=== PATIENT | female | born 1940 | race Caucasian/White ===

== ENCOUNTER → 2018-12-09 09:54 | Outpatient (CLI) | payer MEDICARE, SELFPAY ==
[2018-12-09 11:22] LABS: Estimated Glomerular Filt Rate > 60.0 mL/min (>60)
== END ==
PROVIDERS: PCP Specialist; Visit Provider Dentist Oral and Maxillofacial Surgery
DX: C06.0 Malignant neoplasm of cheek mucosa (principal)
CPT/HCPCS: 36415; 82565

== ENCOUNTER → 2018-12-11 09:36 | Outpatient (CLI) | payer MEDICARE, SELFPAY ==
--- NOTE | 2018-12-11 | DI.CT.S_ITS ---
PROCEDURE: CT FACIAL BONES WO/W CON INDICATIONS: Malignant neoplasm of cheek mucosa TECHNIQUE: After the administration of intravenous contrast, 2.5 mm axial sections acquired from the mid-neck to the frontal sinuses, with coronal and sagittal reformats. For radiation dose reduction, the following was used: automated exposure control, adjustment of mA and/or kV according to patient size. COMPARISON: [facility], [place], BIOPSY LOCALIZATION/ASPIRATION, 04/04/2013, 13:24. [facility], [place], FACIAL BONES WITH CONTRAST, 12/05/2017, 9:40. FINDINGS: Image quality: Dental streak artifact is present obscuring portions of the palate and floor of the mouth. Soft tissues: There is an ill-defined 6 mm nodular soft tissue prominence within the left buccal soft tissue of the lower jaw seen on series 2 image 16. It is seen only on one image it was not clearly identified on prior exam.. No enlarged lymph nodes. Vascular: Visualized vascular structures appear patent throughout. Bony vascular foramina and canals appear normal. Bones: Facial bones appear intact, without fractures, erosions, or destruction. Visualized portions of the skull base and auditory canals also appear normal. Sinuses: Paranasal sinuses are aerated without fluid levels, mucosal thickening, or mucoceles. Mastoid air cells are aerated. IMPRESSION: 1. Ill-defined 6 mm soft tissue focus seen within the buccal soft tissue of the left lower jaw. It is only seen on one image. Recommend correlation to area of concern, as this could represent volume averaging. Dictated by: Dottie Fajardo M.D. on 12/11/2018 at 15:19 Approved by: Dottie Fajardo M.D. on 12/11/2018 at 15:36
== END ==
PROVIDERS: PCP Specialist; Visit Provider Dentist Oral and Maxillofacial Surgery
DX: C06.0 Malignant neoplasm of cheek mucosa (principal)
CPT/HCPCS: 70488; Q9967

== ENCOUNTER → 2019-09-09 09:48 | Outpatient (CLI) | payer MEDICARE, SELFPAY ==
--- NOTE | 2019-09-09 | DI.US.S_ITS ---
PROCEDURE: US ARTERIAL DUPLEX LE RT INDICATIONS: ABNORMAL DARRYL TECHNIQUE: Color and pulse Doppler interrogation was performed of the right lower extremity arterial system, with image documentation. COMPARISON: None. FINDINGS: Common femoral artery: 186 cm/sec, with triphasic flow. Deep femoral artery: 129 cm/sec, with biphasic flow. Proximal superficial femoral artery: 98 cm/sec, with biphasic flow. Mid superficial femoral artery: 93 cm/sec, with biphasic flow. Distal superficial femoral artery: 85 cm/sec, with biphasic flow. Popliteal artery: 83 cm/sec, with biphasic flow. Posterior tibial artery: 116 cm/sec, with biphasic flow. Anterior tibial artery/dorsalis pedis: 110, 105 cm/sec, with triphasic flow. Flower-scale imaging description: Minimal plaque. No significant stenosis. IMPRESSION: 1. Minimal atherosclerotic plaque. 2. No evidence of inflow disease. 3. Widely patent arterial runoff from the common femoral to the ankle. Dictated by: Miguel Negron M.D. on 09/09/2019 at 13:11 Approved by: Miguel Negron M.D. on 09/09/2019 at 13:14
--- NOTE | 2019-09-09 | DI.US.S_ITS ---
PROCEDURE: US DARRYL LIMITED SINGLE LEVEL INDICATIONS: ABNORMAL DARRYL TECHNIQUE: Ankle-brachial indices were obtained bilaterally and recorded. COMPARISONS: FINDINGS: Right ankle brachial index (DARRYL): 1.0 Left ankle brachial index (DARRYL): 1.0 IMPRESSION: Ankle-brachial indices within normal limits bilaterally. Dictated by: Gerson Falcon [facility] Interpreted: Vaughn Chandler MD on 09/09/2019 at 12:43 Approved by: Vaughn Chandler M.D. on 09/09/2019 at 16:36
== END ==
PROVIDERS: PCP Specialist; Visit Provider Specialist
DX: R94.39 Abnormal result of other cardiovascular function study (principal)
CPT/HCPCS: 93922; 93926

== ENCOUNTER → 2020-07-08 09:42 | Outpatient (CLI) | payer MEDICARE, SELFPAY ==
[2020-07-08 10:37] LABS: Blood Urea Nitrogen 27 mg/dL (7-17); Estimated Glomerular Filt Rate > 60.0 mL/min (>60)
--- NOTE | 2020-07-08 11:20 | DI.CT.S_ITS ---
PROCEDURE: CT FACIAL BONES WO/W CON INDICATIONS: Malignant neoplasm of cheek mucosa TECHNIQUE: After the administration of intravenous contrast, 2.5 mm axial sections acquired from the mid-neck to the frontal sinuses, with coronal and sagittal reformats. For radiation dose reduction, the following was used: automated exposure control, adjustment of mA and/or kV according to patient size. COMPARISON: [facility], [place], CT FACIAL BONES WO/W CON, 12/11/2018, 9:51. FINDINGS: Image quality: Limited by beam hardening artifact related to metallic dental hardware. Soft tissues: Small, approximately 6 millimeter soft tissue density lesion involving the buccal soft tissues adjacent to the left body of the mandible is stable in size and contour compared to December 11, 2018. No additional mucosal based lesions identified. No enlarged lymph nodes. Vascular: Visualized vascular structures appear patent throughout. Pharyngeal loop is noted in the high cervical segment of the right internal carotid artery. There is 8 millimeter fusiform aneurysmal dilatation involving a portion of the right internal carotid artery pharyngeal loop which is stable Bony vascular foramina and canals appear normal. Bones: Facial bones appear intact, without fractures, erosions, or destruction. Visualized portions of the skull base and auditory canals also appear normal. Sinuses: Mild mucosal thickening noted in the right maxillary sinus and right sphenoid sinus. Mastoid air cells are aerated. IMPRESSION: 1. 6 millimeter soft tissue density lesion involving the buccal soft tissues adjacent to the left body of the mandible is stable in size and contour. 2. No lymphadenopathy based on size criteria. 3. Right maxillary and right sphenoid sinus mucosal thickening. Four. Image quality degraded by beam hardening artifact related to metallic dental hardware. Dictated by: Roma Young MD, PhD on 07/08/2020 at 14:31 Approved by: Roma Young MD, PhD on 07/08/2020 at 14:44
== END ==
PROVIDERS: PCP Specialist; Referring Provider Dentist Oral and Maxillofacial Surgery; Visit Provider Dentist Oral and Maxillofacial Surgery
DX: C06.0 Malignant neoplasm of cheek mucosa (principal)
CPT/HCPCS: 36415; 70488; 82565; 84520; Q9967

== ENCOUNTER → 2022-10-05 09:41 | Outpatient (CLI) | payer MEDICARE, OTHER, SELFPAY ==
--- NOTE | 2022-10-05 09:44 | DI.CT.S_ITS ---
PROCEDURE: CT FACIAL BONES WO/W CON INDICATIONS: Malignant neoplasm of cheek mucosa TECHNIQUE: After the administration of intravenous contrast, 2.5 mm axial sections acquired from the mid-neck to the frontal sinuses, with coronal and sagittal reformats. For radiation dose reduction, the following was used: automated exposure control, adjustment of mA and/or kV according to patient size. COMPARISON: [facility], [place], CT FACIAL BONES WO/W CON, 12/11/2018, 9:51. [facility], CT, CT FACIAL BONES WO/W CON, 07/08/2020, 10:41. FINDINGS: Image quality: Excellent. Soft tissues: Asymmetric soft tissue nodule in the buccal mucosa adjacent to the left body of the mandible remains unchanged from the prior exam. No osseous erosion Vascular: Visualized vascular structures appear patent throughout. Bony vascular foramina and canals appear normal. Distal right cervical ICA fusiform aneurysm again measures 8 mm associated with tortuosity. Petrosal ICA unremarkable Bones: Facial bones appear intact, without fractures, erosions, or destruction. Visualized portions of the skull base and auditory canals also appear normal. Sinuses: Small retention cysts noted in the right sphenoid sinus IMPRESSION: Subtle nodular thickening in the buccal mucosa over the left mandible is similar to prior exams. No osseous erosion Stable right ICA fusiform aneurysm Approved by: Kavon Knowles M.D. on 10/05/2022 at 15:19
[2022-10-05 10:27] LABS: Estimated Glomerular Filt Rate > 60 mL/min (>60)
== END ==
PROVIDERS: Radiology Diagnostic Radiology; PCP Specialist; Referring Provider Dentist Oral and Maxillofacial Surgery; Visit Provider Dentist Oral and Maxillofacial Surgery
DX: C06.0 Malignant neoplasm of cheek mucosa (principal); I67.1 Cerebral aneurysm, nonruptured; J34.1 Cyst and mucocele of nose and nasal sinus
CPT/HCPCS: 36415; 70488; 82565; Q9967